=== PATIENT | female | born 1990 | race African-American/Black ===

== ENCOUNTER 2018-01-13 15:32 | Emergency (ER) | payer MEDICAID ==
[~2018-01-13] VITALS: Ht 167.6 cm; Wt 81.0 kg
[2018-01-13 15:46] VITALS: BP 116/78
== END 2018-01-13 17:21 | disposition home or self-care (01) ==
LOC: ER 15:32
DX: Z02.79 Encounter for issue of other medical certificate (principal)
CPT/HCPCS: 99281